=== PATIENT | male | born 1955 | race Caucasian/White ===

== ENCOUNTER 2016-06-30 17:02 | Inpatient (IN) | payer OTHER ==
--- NOTE | ~2016-06-30 | OP ---
Record Of Operation [facility] [address] [place]. [address] NAME: SHAR LUNDBERG : 53 STATUS : DIS IN PAT#: [id number] AGE: 61 ADM/REG DATE : 06/30/16 MR#: [id number] REPORT SERV DATE: 07/13/16 DICTATED BY: ANICETO PINA DATE: 07/01/16 REPORT STATUS : Draft TRANSCRIBED BY: MODMichelle DATE: 07/01/16 DATE OF PROCEDURE: 07/01/2016 REPORT TITLE: Right and left heart catheterization with coronary arteriography and aortic root injection BODY AFTER REPORT TITLE: INDICATION FOR THIS PROCEDURE: Acute coronary syndrome and aortic stenosis. PROCEDURE IN DETAIL: The patient was prepped and draped in usual sterile fashion. Moderate IV sedation was given. Adequate anesthesia was obtained over the right femoral vessels using lidocaine infiltration. Using the Seldinger technique, a 6-Paraguayan sheath was placed in the right femoral artery and a 7-[place]agu[place] sheath was placed in the right femoral vein. A thermodilution [place] catheter was advanced through the venous sheath to the right pulmonary artery under fluoroscopic guidance. A 6-Paraguayan pigtail catheter was advanced over a guidewire into the left ventricular cavity. Cardiac outputs were obtained by thermodilution technique. Simultaneous left ventricular end-diastolic pressure and pulmonary capillary wedge pressure were recorded. Right heart pullback pressures were then obtained. A left ventricular angiogram was obtained in the BARROS projection. The pigtail catheter was pulled back in the aortic root. The aortic root injection was performed in the BENGALI view. The pigtail catheter was exchanged for a 6 FL4 coronary catheter, which was advanced to the left coronary ostium. Left coronary artery injections were then performed in multiple views. Left coronary catheter was then exchanged for a 6 FR4 coronary catheter, which was advanced to the right coronary ostium. Right coronary artery injections were then performed in the BENGALI and BARROS views. The right coronary catheter was removed. Sheaths were left in place. There were no apparent complications. TOTAL CONTRAST USED: 210 mL. TOTAL RADIATION EXPOSURE: 2424 mGy. ESTIMATED BLOOD LOSS: No significant blood loss occurred. RESULTS: 1. Pressures. Mean right atrial pressure was 10 mmHg. Right ventricular pressure was 70/15 mmHg. Pulmonary artery pressure was 72/40 mmHg: Mean pulmonary capillary wedge pressure was 20 mmHg. Left ventricular pressure was 190/20 mmHg. Aortic pressure was 140/60 mmHg. 2. Cardiac output by thermodilution technique was 3.07 L/minute. 3. Left ventricular angiogram: The left ventricle contracted normally with an estimated ejection fraction of 60%. Moderate mitral regurgitation was present. 4. Aortic root injection. The aortic root shows heavily calcified aortic valve leaflets and the root was moderately dilated. Severe aortic regurgitation was noted. 5. Coronary arteriograms. Left main coronary is normal. Left anterior descending coronary artery is normal. Left circumflex coronary artery is a dominant vessel and is Record Of Operation [address] [address] NAME: SHAR LUNDBERG : 53 STATUS : DIS IN PAT#: [id number] AGE: 61 ADM/REG DATE : 06/30/16 MR#: [id number] REPORT SERV DATE: 07/13/16 DICTATED BY: ANICETO PINA DATE: 07/01/16 REPORT STATUS : Draft TRANSCRIBED BY: AIDAN DATE: 07/01/16 normal. The right coronary artery is a small nondominant vessel and is normal. IMPRESSION: 1. Normal coronary arteries. 2. Severe aortic valvular stenosis with a calculated valve area of 0.44 cm2 associated with aortic insufficiency. 3. Normal left ventricular systolic function with moderate mitral regurgitation. PLAN: Cardiovascular Surgery consultation for aortic valve replacement and possible mitral valve repair. HALLIE/AIDAN Aniceto Pina M.D., F.A.C.C. / [id number] CC: Aniceto Pina M.D., F.A.CFazalCXavi Deleon M.D.
--- NOTE | ~2016-06-30 | PRECARD ---
[facility] [address] [place]. [address] NAME: SHAR LUNDBERG : 53 STATUS : ADM Marley PAT#: [id number] AGE: 61 ADM/REG DATE : 06/30/16 MR#: [id number] REPORT SERV DATE: 06/30/16 DICTATED BY: ANICETO GASPAR DATE: 06/30/16 REPORT STATUS : Draft TRANSCRIBED BY: MODMichelle DATE: 06/30/16 DATE OF ADMISSION: 06/30/2016 HISTORY OF PRESENT ILLNESS: The patient is very 61-year-old white male who had a recent history of pneumonia. He was seen at Dr. Puente's office today and began complaining of shortness of breath. He was referred to the [facility] Emergency Room where initial EKG showed sinus rhythm with no acute changes. Troponin, however, was 0.43. The patient has subsequently converted to atrial fibrillation with a rapid ventricular response. He is in no distress at this time. He denies chest pain. PAST MEDICAL HISTORY: Remarkable for hypertension and pneumonia. SOCIAL HISTORY: The patient quit smoking over 10 years ago. FAMILY HISTORY: Positive for coronary artery disease (mother had bypass surgery). REVIEW OF SYSTEMS: The patient has a nonproductive cough. Denies nausea, vomiting, diarrhea, or dysuria. PHYSICAL EXAMINATION: VITAL SIGNS: Blood pressure is 140/80, heart rate is 130 and irregular, and respirations 18, nonlabored. ENT: Unremarkable. NECK: Shows no jugular venous distention with good carotid upstroke. CHEST: Clear. CARDIOVASCULAR: The PMI is not displaced. S1 is variable. S2 is narrowly split. No gallop is present. ABDOMEN: Soft and nontender with normal bowel sounds. EXTREMITIES: Show no cyanosis, clubbing, or edema. SKIN: Warm and dry with no pallor or icterus. NEURO/PSYCH: The patient is oriented x3 with appropriate affect. LABORATORY DATA: BUN is 28, creatinine is 1.44, and potassium is 4.1. Hematocrit is 43.6. IMPRESSION: 1. Acute coronary syndrome. 2. Paroxysmal atrial fibrillation. 3. History of hypertension. PLAN: 1. Admit to monitored bed on heparin and a Cardizem trip. 2. Begin beta-carrie therapy and aspirin. 3. Echocardiogram. 4. Plan cardiac catheterization tomorrow afternoon. [facility] [address] [place]. [address] NAME: SHAR LUNDBERG : 53 STATUS : ADM Marley PAT#: [id number] AGE: 61 ADM/REG DATE : 06/30/16 MR#: [id number] REPORT SERV DATE: 06/30/16 DICTATED BY: ANICETO GASPAR DATE: 06/30/16 REPORT STATUS : Draft TRANSCRIBED BY: AIDAN DATE: 06/30/16 HALLIE/AIDAN Aniceto Gaspar M.D., Chris.CFazalC. / [id number] CC: Aniceto Gaspar M.D., FFazalA.CFazalCFazal Puente M.D.
[2016-06-30 16:57] LABS: BASOPHILS 0.2 %; BASOPHILS ABSOLUTE 0.02 10/3/uL (0.0-0.16); EOSINOPHILS 0.7 %; EOSINOPHILS ABSOLUTE 0.07 10/3/uL (0.0-0.53); HEMATOCRIT 43.6 % (40.0-51.0); HEMOGLOBIN 14.4 g/dL (13.6-17.8); IMMATURE GRANULOCYTES 0.3 %; IMMATURE GRANULOCYTES ABSOLUTE 0.03 10/3/uL (0.0-0.11); LYMPHOCYTES 11.2 %; LYMPHOCYTES ABSOLUTE 1.17 10/3/uL (0.67-4.30); MEAN CORPUSCULAR HEMOGLOB 30.4 pg (26.0-34.0); MEAN CORPUSCULAR VOLUME 92.2 fL (80-100); MEAN PLATELET VOLUME 10.9 fL (9.2-13.0); MONOCYTES 5.6 %; MONOCYTES ABSOLUTE 0.58 10/3/uL (0.21-1.20); NEUTROPHILS ABSOLUTE 8.55 10/3/uL (2.02-8.40); PLATELET COUNT 146 10/3/uL (150-400); RBC DISTRIBUTION WIDTH 13.7 % (12.0-16.0); RED CELL COUNT 4.73 10/6/uL (4.7-6.1); WHITE BLOOD CELLS 10.4 10/3/uL (4.5-10.5)
[2016-06-30 16:58] LABS: MANUAL DIFF NO %
[2016-06-30 17:04] LABS: PARTIAL THROMBO TIME 25.8 SEC (22.5-37.2); PROTIME (NOT ORD) 13.4 SEC (12.0-14.5)
[2016-06-30 17:15] LABS: BUN (BLOOD UREA NITROGEN) 28 MG/DL (6-23); CALCIUM, SERUM 8.9 MG/DL (8.5-10.4); CHLORIDE, SERUM 102 MMOL/L (96-112); CO2 (CARBON DIOXIDE) 30 MMOL/L (24-34); CREATININE 1.44 MG/DL (0.70-1.30); GFR AFRICAN AMERICAN 60 ML/MIN (>=60); GFR NON AFRICAN AMERICAN 52 ML/MIN (>=60); GLUCOSE, SERUM 119 MG/DL (60-99); POTASSIUM, SERUM 4.1 MMOL/L (3.5-5.3); SODIUM, SERUM 140 MMOL/L (135-148)
[2016-06-30 17:20] LABS: CHEST PAIN PROFILE TAT 0 Hrs 27 Mins; TROPONIN I 0.43 NG/ML (<0.05)
[2016-06-30] MEDS ORDERED: ATEN25 PO (17:54)
[2016-06-30] MEDS ORDERED: NITROSTAT0.4 MG SL (17:55)
[2016-06-30] MEDS ORDERED: ASAB PO (17:56)
[2016-07-01 01:35] LABS: BASOPHILS 0.5 %; BASOPHILS ABSOLUTE 0.04 10/3/uL (0.0-0.16); EOSINOPHILS ABSOLUTE 0.08 10/3/uL (0.0-0.53); HEMATOCRIT 40.3 % (40.0-51.0); HEMOGLOBIN 13.3 g/dL (13.6-17.8); IMMATURE GRANULOCYTES 0.2 %; IMMATURE GRANULOCYTES ABSOLUTE 0.02 10/3/uL (0.0-0.11); LYMPHOCYTES 26.7 %; LYMPHOCYTES ABSOLUTE 2.23 10/3/uL (0.67-4.30); MEAN CORPUSCULAR HEMOGLOB 30.2 pg (26.0-34.0); MEAN CORPUSCULAR VOLUME 91.6 fL (80-100); MONOCYTES 8.2 %; MONOCYTES ABSOLUTE 0.68 10/3/uL (0.21-1.20); NEUTROPHILS 63.4 %; NEUTROPHILS ABSOLUTE 5.29 10/3/uL (2.02-8.40); PLATELET COUNT 156 10/3/uL (150-400); RBC DISTRIBUTION WIDTH 13.9 % (12.0-16.0); WHITE BLOOD CELLS 8.3 10/3/uL (4.5-10.5)
[2016-07-01 01:36] LABS: MANUAL DIFF NO %
[2016-07-01 01:53] LABS: CHOL/HDL RATIO(NOT ORDER) 4.3 (0-5)
[2016-07-01 12:07] LABS: ASCORBIC ACID (UR NOT ORDER) 40 (NEG); BILIRUBIN, URINE NEGATIVE (NEG); KETONE, URINE NEGATIVE (NEG); LEUKOCYTE ESTERASE(NOT OR MOD (NEG); WBC (NOT ORDERED) (RFLEX) 85 (0-5)
[2016-07-01 14:54] LABS: BUN (BLOOD UREA NITROGEN) 27 MG/DL (6-23); CALCIUM, SERUM 8.5 MG/DL (8.5-10.4); CHLORIDE, SERUM 105 MMOL/L (96-112); CO2 (CARBON DIOXIDE) 28 MMOL/L (24-34); CREATININE 1.27 MG/DL (0.70-1.30); GFR AFRICAN AMERICAN 70 ML/MIN (>=60); GFR NON AFRICAN AMERICAN 60 ML/MIN (>=60); GLUCOSE, SERUM 130 MG/DL (60-99); SODIUM, SERUM 140 MMOL/L (135-148)
[2016-07-02] MEDS ORDERED: L40 PO (16:01)
[2016-07-02] MEDS ORDERED: KDUR20 PO (16:01)
== END 2016-07-02 17:10 | disposition home or self-care (01) | DRG 287 ==
LOC: ER 17:02 → 5NO 20:31
PROVIDERS: Emergency Medicine; Internal Medicine Interventional Cardiology
PROC: 4A023N8 Measurement of Cardiac Sampling and Pressure, Bilateral, Percutaneous Approach (ICD-10-PCS; principal; 2016-06-30)
PROC: B2111ZZ Fluoroscopy of Multiple Coronary Arteries using Low Osmolar Contrast (ICD-10-PCS; 2016-06-30)
PROC: B2151ZZ Fluoroscopy of Left Heart using Low Osmolar Contrast (ICD-10-PCS; 2016-06-30)
DX: I24.9 Acute ischemic heart disease, unspecified (principal); I10 Essential (primary) hypertension; I48.0 Paroxysmal atrial fibrillation; I35.0 Nonrheumatic aortic (valve) stenosis; Z87.891 Personal history of nicotine dependence; I34.0 Nonrheumatic mitral (valve) insufficiency
CPT/HCPCS: 71010; 80048; 80061; 81001; 83735; 83880; 84460; 84484; 85025; 85610; 85730; 87077; 87086; 87186; 93005; 93460; 93567; 96374; 99152; 99153; 99291; A9270-GY; C1769; C1894; C8929; J2250; J3010; Q9957; Q9967